=== PATIENT | female | born 1975 | race Caucasian/White ===

== ENCOUNTER 2017-06-29 11:30 | Outpatient (RCR) | payer MEDICAID | END 2017-07-18 11:43 | disposition home or self-care (01) | LOC: PT 11:30 | DX: M77.11 Lateral epicondylitis, right elbow (principal); M54.16 Radiculopathy, lumbar region ==

== ENCOUNTER → 2017-07-31 | Outpatient (CLI) | payer MEDICAID | LOC: RAD 09:13 | DX: M79.672 Pain in left foot (principal); M25.50 Pain in unspecified joint; F19.10 Other psychoactive substance abuse, uncomplicated; M26.629 Arthralgia of temporomandibular joint, unspecified side; M79.1 Myalgia ==

== ENCOUNTER → 2018-05-27 | Outpatient (CLI) | payer SELFPAY | LOC: LAB 18:10 | DX: N39.0 Urinary tract infection, site not specified (principal) ==

== ENCOUNTER 2018-07-30 18:47 | Emergency (ER) | payer SELFPAY ==
[~2018-07-30] VITALS: Ht 175.3 cm; Wt 63.6 kg
[2018-07-30] MEDS ORDERED: ULTRAM50 M1 (18:57)
[2018-07-30] MEDS ORDERED: PROAIR HFA0.09 MG/AC IH (18:57)
[2018-07-30] MEDS ORDERED: ADVIL 200MG TA200 MG PO (18:58)
[2018-07-30] MEDS ORDERED: PROVENTIL0.09 MG/A1 IH (20:07)
[2018-07-30] MEDS ORDERED: PREDNISONE10 MG PO (20:07)
[2018-07-30 20:15] VITALS: BP 132/89
== END 2018-07-30 20:15 | disposition home or self-care (01) ==
LOC: ED 18:47
DX: J45.901 Unspecified asthma with (acute) exacerbation (principal); J20.9 Acute bronchitis, unspecified; Z79.899 Other long term (current) drug therapy
CPT/HCPCS: J2930

== ENCOUNTER → 2018-08-08 | Outpatient (CLI) | payer SELFPAY ==
[2018-07-30 20:15] VITALS: BP 132/89
[~2018-08-08] MED LIST: ADVIL 200MG TA200 MG PO; PREDNISONE10 MG PO; PROAIR HFA0.09 MG/AC IH; PROVENTIL0.09 MG/A1 IH; ULTRAM50 M1
[2018-08-08 17:34] LABS: URINE APPEARANCE CLEAR; URINE BILIRUBIN NEGATIVE (NEGATIVE); URINE BLOOD NEGATIVE (NEGATIVE); URINE COLOR YELLOW; URINE GLUCOSE NEGATIVE (NEGATIVE); URINE KETONE NEGATIVE (NEGATIVE); URINE LEUKOCYTE ESTERASE NEGATIVE (NEGATIVE); URINE NITRATE NEGATIVE (NEGATIVE); URINE PROTEIN(semi-quant) 1+ mg/dL (NEGATIVE); URINE UROBILINOGEN NORMAL (NORMAL); URINE WBC 0-1 /hpf (0-3)
== END ==
LOC: LAB 14:46
PROVIDERS: Internal Medicine
DX: R39.9 Unspecified symptoms and signs involving the genitourinary system (principal)